=== PATIENT | female | born 1950 | race Caucasian/White ===

== ENCOUNTER → 2018-11-28 | Outpatient (CLI) | payer MEDICARE | END | disposition home or self-care (01) | LOC: CVU 12:37 | PROVIDERS: ATTEND Internal Medicine Cardiovascular Disease | DX: I08.2 Rheumatic disorders of both aortic and tricuspid valves (principal); I70.8 Atherosclerosis of other arteries; I73.9 Peripheral vascular disease, unspecified; Z87.891 Personal history of nicotine dependence | CPT/HCPCS: 93306; 93922; 93978 ==